=== PATIENT | female | born 1975 | race Caucasian/White ===

== ENCOUNTER 2016-02-27 07:40 | Observation (INO) | payer OTHER ==
[2016-02-27] MEDS ORDERED: LORazepam 2 MG/ML VIAL IVP ONE ×2 (07:56→10:49)
[2016-02-27] MEDS ORDERED: 0.9 % SODIUM CHLORIDE 1,000 ML IV ONE ×2 (08:00→09:11)
[2016-02-27] MEDS ORDERED: ONDANSETRON HCL/PF 4 MG/ 2ML VIAL IVP ONE (08:00)
[2016-02-27 08:34] LABS: BASOPHILS % 2 % (0-2); EOSINOPHILS % 6 % (0-7); MONOCYTES % 5 % (0-11); SEGMENTED NEUTROPHILS % 65 % (39-79)
[2016-02-27 08:35] LABS: eGFR (African) > 60; eGFR (Non-African) > 60
[2016-02-27] MEDS ORDERED: MVI, ADULT NO.1 WITH VIT K 10 ML VIAL IV ONE (09:11)
[2016-02-27] MEDS ORDERED: THIAMINE HCL 100 MG/ML 2ML VIAL ONE (09:11)
[2016-02-27] MEDS ORDERED: FOLIC ACID 5 MG/1 ML ONE (09:11)
[2016-02-27] MEDS ORDERED: THIAMINE HCL 100 MG, MVI, ADULT NO.1 WITH VIT K 10 ML, FOLIC ACID 5 MG in 0.9 % SODIUM ... IV ONE ×4 (09:13)
[2016-02-27] MEDS ORDERED: PROMETHAZINE HCL 25 MG/ML VIAL IM ONE (09:13)
[2016-02-27] MEDS ORDERED: ONDANSETRON HCL 4 MG TAB.RAPDIS PO PRN (11:20)
[2016-02-27] MEDS ORDERED: PROMETHAZINE HCL 25 MG/ML VIAL IM PRN (11:20)
--- NOTE | 2016-02-27 11:25 | ED Physician Documentation ---
Psychological Disorders - HISTORIAN Historian: patient - HPI Stated Complaint: Alcohol withdrawal Chief Complaint: Psychological Disorder Onset: days ago Further Comments: yes (40 year old female patient sent in from [facility] for evaluation of DTs. Patient checked into [facility] for ETOH abuse treatment on 02/26/2016, states her last drink was 02/25/2016. C/O tremors and vomiting.) - ROS CONST: sweating, chills. denies: recent illness, fever NEURO/PSYCH: headache. denies: anxiety, depression EYES/ENT: none CVS/RESP: none GI/: nausea, vomiting. denies: abdominal pain, problems urinating - PAST HX Psychiatric problems: other (ETOH abuse, rehab 08/2014) DVT/PE Risk Factors: none Surgical History: no surgical history Allergies/Adverse Reactions: Allergies Allergy/AdvReac Type Severity Reaction Status Date / Time No Known Allergies Allergy Verified 02/27/16 08:14 Home Medications: Ambulatory Orders Medication Instructions Recorded Oxazepam [Serax] 30 mg PO Q4 PRN 02/27/16 - Social HX Smoking History: cigarettes Marital Status: single Drug Use: other (daily ETOH 12-24 beers) - Family HX Family HX: denies: other - VITAL SIGNS Vital Signs: Vital Signs Temp Pulse Resp BP Pulse Ox 98.3 F 78 28 H 141/88 97 02/27/16 07:40 02/27/16 11:00 02/27/16 07:40 02/27/16 07:40 02/27/16 11:00 - REVIEWED ASSESSMENTS Nursing Assessment Reviewed: Yes Vitals Reviewed: Yes Progress - Progress Progress: frequent c/o nause and vomiting. Medicated with Zofran. 1L NS in, patient continues to Vomit. Phenergan 25mg IM given and banana bag. Will likely need admission - gait unsteady, unable to keep down po's at this time. [address] Case, will accept patient for admission. Alcohol withdraw orders q2h, scoring system placed on chart. RN able to redirect patient well. ED Results Lab/Radiology - Lab Results Lab Results: Lab Results 02/27/16 02/27/16 08:00 08:00 WBC 4.50 K/ul K/ul (4.00-12.00) RBC 3.86 M/ul L M/ul (3.90-5.20) Hgb 13.9 g/dL g/dL (12.0-16.0) Hct 42.4 % % (34.5-46.5) MCV 109.8 fl H fl (80.0-100.0) MCH 36.0 pg H pg (28.0-34.0) MCHC 32.8 g/dL g/dL (30.0-36.0) RDW 12.7 % % (11.3-14.3) Plt Count 71 K/mm3 L K/mm3 (130-400) Seg Neutrophils % 65 % % (39-79) Band Neutrophils % 3 % % (0-12) Lymphocytes % 18 % % (16-50) Monocytes % 5 % % (0-11) Eosinophils % 6 % % (0-7) Basophils % 2 % % (0-2) Reactive Lymphocytes 1 % % (0-5) Plt Morphology Comment Normal (NORMAL) Poikilocytosis 1+ H (NEGATIVE) Macrocytosis 1+ H (NEGATIVE) RBC Morph Comment Abnormal H (NORMAL) Sodium 143 mmol/L mmol/L (136-145) Potassium 3.7 mmol/L mmol/L (3.5-5.0) Chloride 96 mmol/L L mmol/L (98-110) Carbon Dioxide 28 mmol/L mmol/L (20-32) BUN 6 mg/dL L mg/dL (10-26) Creatinine 0.4 mg/dL mg/dL (0.4-1.5) Estimated Creat Clear 230 Est GFR ( Amer) > 60 (60 - ) Est GFR (Non-Af Amer) > 60 (60 - ) Glucose 109 mg/dL H mg/dL (70-99) Calcium 9.1 mg/dL mg/dL (8.5-10.5) Total Bilirubin 0.5 mg/dL mg/dL (0.2-1.2) AST 70 U/L H U/L (0-41) ALT 43 U/L U/L (0-45) Alkaline Phosphatase 112 U/L U/L (46-116) Total Protein 7.7 g/dL g/dL (6.0-8.5) Albumin 4.2 g/dL g/dL (3.0-5.5) Ethyl Alcohol 100.0 MG/DL H MG/DL (<10.0) - Orders Orders: ED Orders Category Date Time Status Continuous EKG monitoring Q30M Care 02/27/16 07:56 Active Continuous Pulse Oximetry Q30M Care 02/27/16 07:[address] Saline Lock/IV NOW Care 02/27/16 07:56 Active CBC/PLATELET/DIFF Stat Lab 02/27/16 08:00 Completed CMP Stat Lab 02/27/16 08:00 Completed ETHANOL MEDICAL USE ONLY Stat Lab 02/27/16 08:00 Completed 0.9 % Sodium Chloride [Normal Saline] 1,000 ml Med 02/27/16 09:11 Discontinued IV .STK-MED 0.9 % Sodium Chloride [Normal Saline] 1,000 ml Med 02/27/16 08:00 Discontinued IV NOW Folic Acid [Folvite] Med 02/27/16 09:11 Discontinued 5 mg .ROUTE .STK-MED ONE LORazepam [Ativan] Med 02/27/16 07:56 Discontinued 1 mg IVP NOW ONE LORazepam [Ativan] Med 02/27/16 10:49 Discontinued 1 mg IVP NOW ONE Mvi, Adult No.1 with Vit K [M.v.i. Adult] Med 02/27/16 09:11 Discontinued 10 ml IV .STK-MED ONE Ondansetron HCl/Pf [Zofran 4 mg/2 ml] Med 02/27/16 08:00 Discontinued 4 mg IVP NOW ONE Promethazine HCl [Phenergan] Med 02/27/16 09:13 Discontinued 25 mg IM NOW ONE Thiamine HCl Med 02/27/16 09:11 Discontinued 200 mg .ROUTE .STK-MED ONE Thiamine HCl 100 mg Med 02/27/16 09:13 Discontinued Mvi, Adult No.1 with Vit K [M.v.i. Adult] 10 ml Folic Acid [Folvite] 5 mg 0.9 % Sodium Chloride [Normal Saline] 1,000 ml IV NOW Psych Physical Exam - Physical Exam General Appearance: moderate distress ENT: nml ENT inspection, pharynx nml, nml gag reflex, head atraumatic Eyes: PERRL Mental Status: mood/affect nml Suicide Attempts: denies Orientation: nml x3 Cranial Nerves: CN's intact as tested Sensory, Motor: nml motor response, nml sensory response, nml reflexes, nml gait Neck/Back: normal inspection, thyroid normal Respiratory: no resp distress, chest non-tender, breath sounds normal CVS: reg rate & rhythm, heart sounds normal, equal pulses, no murmur, no gallop , PMI nml, no JVD, no friction rub, 24 Abdomen: non-tender, no organomegaly, nml bowel sounds, no distention Skin: normal color, warm/dry, NR, INT, PAL, DR Extremities: non-tender, normal range of motion, no evidence of injury, no edema , other (intermittent tremors noted in hands) Discharge Clincal Impression: DTs (delirium tremens), Thrombocytopenia Nausea & vomiting Qualifiers: Vomiting type: unspecified Vomiting Intractability: intractable Qualified Code( s): R11.2 - Nausea with vomiting, unspecified Home Medications: Ambulatory Orders Oxazepam [Serax] 30 mg PO Q4 PRN 02/27/16 Condition: Stable Disposition: ADMITTED INPATIENT Decision to Admit: NO Decision Time: 10:50
[2016-02-27] MEDS ORDERED: 0.9 % SODIUM CHLORIDE 1,000 ML IV SCH (11:30)
[2016-02-27 12:01] VITALS: BMI 21.8
--- NOTE | 2016-02-27 12:41 | History and Physical Report ---
History of Present Illnes - History of Present Illness Reason for Visit: Vomiting History of Present Illness: Patient presented to [facility] yesterday for treatment of alcohol abuse. Had been a patient there 09/04. Poor historian. Drinks heavily - last use 02/26/16 and BAL was 0.4 there. Used to drinking all night but slept all night at [facility] so did not receive medication. Nursing there reports vomiting there. Has been drinking 12-24 beers daily. Does not go a day without drinking. UDS at [facility] was negative. Brought to ER by [facility] Staff after noting severe tremors and agitation. - Past Medical History Psych: Addictions (Alcohol - rehab 09/04) - Past Surgical History Past Surgical History: Other (Extensive finger laceration repair. ) - Past Family History Mother Family History: DM, Other (Addiction runs in family) Sister 1 Family History: Other (Twin - h/o alcohol addiction) - Past Social History Smoke: 1 pack per day Alcohol: Heavy (12-24 beers/day) Drugs: None Lives: With Family () - Health Maintenance Health Maintenance: Pap Smear Influenza Vaccine: No Pneumonia Vaccine: No Resuscitation Status: Resusciation Status Resuscitation Status Full Code Review of Systems - Review of Systems Constitutional: negative: Fever, Chills Eyes: negative: pain ENT: negative: Nose Congestion Respiratory: negative: Cough, Shortness of Breath Cardiovascular: negative: Chest Pain Gastrointestinal: Nausea, Vomiting. negative: Abdominal Pain, Diarrhea Genitourinary: negative: Dysuria Musculoskeletal: negative: Neck Pain Skin: negative: Rash Neurological: negative: Weakness - Medications/Allergies Allergies/Adverse Reactions: Allergies Allergy/AdvReac Type Severity Reaction Status Date / Time No Known Allergies Allergy Verified 02/27/16 08:14 Home Medications: Home Medications Oxazepam [Serax] 30 mg PO Q4 PRN 02/27/16 Current Inpatient Medications: Current Inpatient Medications Sodium Chloride (Normal Saline) 1,000 mls @ 100 mls/hr IV Q10H CECIL Last Admin: 02/27/16 11:30 Dose: 100 mls/hr Ondansetron HCl (Zofran Odt) 4 mg PO Q6H PRN PRN Reason: Nausea / Vomiting Promethazine HCl (Phenergan) 25 mg IM Q6 PRN PRN Reason: Nausea / Vomiting Exam - Exam Vital Signs: Vital Signs (72 hours) 02/27/16 02/27/16 02/27/16 11:30 11:40 11:57 Temperature 98.8 F 98.8 F Pulse Rate 87 Pulse Rate [ 82 82 Left] Respiratory 20 20 Rate Blood Pressure 143/101 143/101 [Left Arm] O2 Sat by Pulse 93 93 93 Oximetry General: Alert, Oriented to Person, Oriented to Place, Oriented to Time, Other ( Agitated.). No: Cooperative HEENT: Atraumatic, PERRLA, EOMI, Mouth Mucous membr. moist/[place], Nose Mucous membr. moist/[place] Neck: Normal Range of Motion Lungs: Clear to auscultation, Normal air movement, Speaks full Sentences Cardiovascular: Regular rate Abdomen: Normal bowel sounds, Soft, No tenderness Integumentary: Normal Extremities: No edema Neurological: Normal gait, Strength Equal Bilat, Reflexes 2+. No: Normal speech , Generalized Weakness Psych/Mental Status: Mental status NL, Mood NL. No: Appropriate Affect, Intact Judgment Assessment/Plan - Assessment/Plan (1) Alcohol withdrawal delirium Status: Acute Current Visit: Yes Plan: Admit for severity assessments with ativan IV as needed. Watch closely. (2) Nausea & vomiting Status: Acute Current Visit: Yes Qualifiers: Vomiting type: unspecified Vomiting Intractability: intractable Qualified Code(s): R11.2 - Nausea with vomiting, unspecified Plan: IVF hydration started. VTE Assessment - RISK FACTOR SCORE VTE RISK FACTOR SCORES: OTHER (None apply.) - RISK VTE LOW RISK: SCORE OF 1 OR LESS (RISK PROXIMAL DVT 0.4%) NO PROPHYLAXIS NEEDED
[2016-02-27] MEDS: LORazepam 2 MG/ML VIAL IVP PRN ×2 (13:13→15:19)
[2016-02-27] MEDS ORDERED: SALINE FLUSH 10 ML DISP.SYRIN IVF ONE (14:25)
--- NOTE | 2016-02-27 15:16 | Discharge Summary ---
Discharge Summary - Discharge Sumary History of Present Illness: Patient presented to [facility] yesterday for treatment of alcohol abuse. Had been a patient there 09/04. Poor historian. Drinks heavily - last use 02/26/16 and BAL was 0.4 there. Used to drinking all night but slept all night at [facility] so did not receive medication. Nursing there reports vomiting there. Has been drinking 12-24 beers daily. Does not go a day without drinking. UDS at [facility] was negative. Brought to ER by [facility] Staff after noting severe tremors and agitation. Condition at Discharge: Stable Consultations this Visit: None Procedures this Visit: None Allergies/Adverse Reactions: Allergies Allergy/AdvReac Type Severity Reaction Status Date / Time No Known Allergies Allergy Verified 02/27/16 08:14 Patient Problems: Current Active Problems Problem Status Onset Alcohol withdrawal delirium Acute DTs (delirium tremens) Acute Nausea & vomiting Acute Thrombocytopenia Acute Hospital Course: Patient was admitted for EtOH detox. She became very agitated despite IV ativan and redirection. Due to inability of staff to be able to sit one on one with her after she pulled out several IV's and fell out of bed, she was transferred to [facility] for care.
[2016-02-27 15:43] VITALS: BP 142/92
[2016-02-28] MEDS ORDERED: FOLIC ACID 1 MG TABLET PO SCH (09:00)
[2016-02-28] MEDS ORDERED: THIAMINE HCL 100 MG TABLET PO SCH (09:00)
== END 2016-02-27 15:44 | disposition short-term general hospital (02) ==
LOC: ED 07:40 → SOUTH 11:16
PROVIDERS: ADMIT Family Medicine; ATTEND Family Medicine
DX: F10.231 Alcohol dependence with withdrawal delirium (principal); T51.0X1A Toxic effect of ethanol, accidental (unintentional), initial encounter; D69.6 Thrombocytopenia, unspecified; R11.2 Nausea with vomiting, unspecified; F17.210 Nicotine dependence, cigarettes, uncomplicated
CPT/HCPCS: 80053; 80320; 80377; 81025; 85025; G0378; J2060; J2405; J2550; J3411; J3490; J7030; 96361; 96372; 96374; 96375; 96376; 99283; 99284; G0477; G0480; S1016